=== PATIENT | male | born 1990 | race Caucasian/White ===

== ENCOUNTER 2018-09-29 22:51 | Emergency (ER) | payer SELFPAY ==
[~2018-09-29] VITALS: Ht 180.3 cm; Wt 138.0 kg
[2018-09-30] MEDS ORDERED: KETOROLAC 60MG/2ML VIAL IM STA (00:05)
[2018-09-30 00:27] VITALS: BP 154/100
== END 2018-09-30 02:51 | disposition home or self-care (01) ==
LOC: ER 22:51
DX: S82.492A Other fracture of shaft of left fibula, initial encounter for closed fracture (principal); M25.562 Pain in left knee; Y93.66 Activity, soccer; Y92.9 Unspecified place or not applicable
CPT/HCPCS: 73562; 96372; 99283; J1885; L1830